=== PATIENT | male | born 1955 | race Caucasian/White ===

== ENCOUNTER 2017-01-19 03:06 | Emergency (ER) | payer MEDICAID ==
[~2017-01-19] VITALS: Ht 193 cm; Wt 145.1 kg
[~2017-01-19 03:06] MED LIST: ASPI81TA9 PO; CLOP75TA PO; CRESTOR40 MG PO; FURO-68 PO; HYDR-2666 PO; HYDR-2869 PO; ISOS30TA4 PO; LISI40TA PO; METO100T2 PO; OXYC-250 PO; VALIUM10 MG PO
[2017-01-19] MEDS ORDERED: HYDR-2666 PO (03:58)
[2017-01-19 04:00] VITALS: BP 171/92
[2017-01-19] MEDS ORDERED: HYDROMORPHONE 2 MG/ML VIAL. IM ONE (04:00)
[2017-01-19] MEDS ORDERED: CYCLOBENZAPRINE 10 MG TABLET. PO ONE (04:00)
--- NOTE | 2017-01-19 04:00 | PHYS DOC ---
Past Medical History Past Medical History: Hypertension, [place] Additional Past Medical Histor: 3 CARDIAC EVENTS, 4 STENTS PLACED Past Surgical History: Appendectomy, Cholecystectomy Additional Past Surgical Histo: 4 cardiac stents; lithotrypsy Alcohol Use: Rarely Drug Use: None Adult General Chief Complaint Chief Complaint: BACK PAIN OR INJURY HPI HPI 61-year-old gentleman presenting to the emergency department with back pain that radiates to his left leg. He describes the pain is severe sharp and similar to his previous sciatica. He denies urinary or fecal incontinence. He denies perineal paresthesias. He denies numbness weakness or tingling. Review of systems is negative for chest pain shortness of breath abdominal pain fevers or chills. All other review of systems is negative unless otherwise noted in history of present illness. Review of Systems Review of Systems SEE ABOVE. Current Medications Current Medications Current Medications Medications (Trade) Dose Ordered Sig/Erik Start Time Stop Time Status Last Admin Dose Admin Cyclobenzaprine HCl (Flexeril) 10 mg 1X ONCE 01/19/17 04:00 01/19/17 04:01 01/19/17 03:49 10 MG Hydromorphone HCl (Dilaudid) 1 mg 1X ONCE 01/19/17 04:00 01/19/17 04:01 01/19/17 03:50 1 MG Allergies Allergies Allergies Coded Allergies Type Severity Reaction Last Updated Verified ketorolac Allergy Intermediate 10/08/16 Yes morphine Allergy Intermediate DILAUDID OK 10/08/16 Yes prochlorperazine Allergy Intermediate 10/08/16 Yes promethazine Allergy Intermediate 10/08/16 Yes Physical Exam Physical Exam Constitutional: Well developed, well nourished, no acute distress, non-toxic appearance. HENT: Normocephalic, atraumatic, bilateral external ears normal, oropharynx moist, no oral exudates, nose normal. [] Eyes: PERRLA, EOMI, conjunctiva normal, no discharge. Neck: Normal range of motion, no tenderness, supple, no stridor. [] Cardiovascular:Heart rate regular rhythm, no murmur [] Lungs & Thorax: Bilateral breath sounds clear to auscultation Abdomen: Bowel sounds normal, soft, no tenderness, no masses, no pulsatile masses. [] Skin: Warm, dry, no erythema, no rash. [] Back: Patient has mild tenderness along the left lower back in the paraspinal musculature. No tenderness in the midline. No fluctuant masses. No erythema present on the back. No CVA tenderness. Extremities: No tenderness, no cyanosis, no clubbing, ROM intact, no edema. [] Neurologic: Alert and oriented X 3, normal motor function, normal sensory function, no focal deficits noted. 5 out of 5 strength in his lower extremity's. Psychologic: Affect normal, judgement normal, mood normal. Current Patient Data Vital Signs Vital Signs Date Time Temp Pulse Resp B/P Pulse Ox O2 Delivery O2 Flow Rate FiO2 01/19/17 03:50 20 97 Room Air 01/19/17 03:15 98.1 67 167/105 98.1 EKG EKG [] Radiology/Procedures Radiology/Procedures [] Course & Med Decision Making Course & Med Decision Making Pertinent Labs and Imaging studies reviewed. (See chart for details) [] 61-year-old male presenting with acute lumbar back pain suggestive of sciatica. Vital signs showed hypertension which I recommended he follow up with his primary care physician with. Otherwise presentation not suggestive of cauda equina syndrome. She is provided intramuscular pain medication and discharged home with oral pain medication to follow-up with his PCP in 2-3 days if his symptoms did not improve. Dragon Disclaimer Dragon Disclaimer This electronic medical record was generated, in whole or in part, using a voice recognition dictation system. Departure Departure Impression: Primary Impression: Sciatica Disposition: 01 HOME, SELF-CARE Condition: STABLE Referrals: NO PCP (PCP) CHARITY ALEXANDER MD Patient Instructions: Sciatica Additional Instructions: Thank you for allowing us to participate in your care today. Followup with your primary care physician in 3 days if your symptoms do not improve. If you do not have a primary care provider you can ask for a list of our primary care providers. Return to the emergency department you have any new or concerning findings. This should be evaluated by the primary care physician and any necessary consulting services for continued management within a few days after discharge. Return to emergency room if you have any new or concerning symptoms including but not limited to fever, chills, nausea, vomiting, intractable pain, any new rashes, chest pain, shortness of air, uncontrolled bleeding, difficulty breathing, and/or vision loss. You may have been prescribed medication that can change in your level of thinking and ability to operate machinery. These medications include hydrocodone and Ativan. Also, Benadryl has been known to do this as well. Be sure to check with your pharmacist and ask if the medications you've prescribed can affect your level of consciousness. I recommend not operating heavy machinery or driving while on medication such as these. Scripts Hydrocodone Bit/Acetaminophen (Hydrocodone-Apap 5-325 )1 Each Tablet1 Tab PO PRN Q6HRS PRN PAIN #15 TAB Be careful as this medication may cause you to be drowsy or tired. Do not drive on this medication. Prov:JOSE VELASQUEZ MD 01/19/17 JOSE VELASQUEZ MD Jan 19, 2017 04:00
== END 2017-01-19 04:05 | disposition home or self-care (01) ==
LOC: ER 03:06
DX: M54.42 Lumbago with sciatica, left side (principal); Z95.5 Presence of coronary angioplasty implant and graft; I25.2 Old myocardial infarction; I10 Essential (primary) hypertension; Z90.49 Acquired absence of other specified parts of digestive tract; Z88.5 Allergy status to narcotic agent; Z88.8 Allergy status to other drugs, medicaments and biological substances
CPT/HCPCS: 96372; 99283; J1170